=== PATIENT | female | born 1995 | race Caucasian/White ===

== ENCOUNTER 2022-12-04 00:25 | Inpatient (IN) | payer OTHER ==
[2022-12-04 03:20] LABS: BASO % 0.4 % (0-2.0); EOS % 1.1 % (0-4.5); HEMATOCRIT 32.6 % (32.4-45.2); HEMOGLOBIN 11.4 GM/dL (10.7-15.3); LYMPH % 27.5 % (8-40); MCH 29.6 pg (25.7-33.7); MCHC 34.8 g/dl (32.0-36.0); MEAN PLT VOLUME 8.3 fl (7.5-11.1); MONO % 8.1 % (3.8-10.2); NEUT % 62.9 % (42.8-82.8); PLATELET COUNT 231 10^3/uL (134-434); RBC 3.84 M/mm3 (3.60-5.2); RDW 13.5 % (11.6-15.6); WHITE BLOOD COUNT 7.1 K/mm3 (4.0-10.0)
[2022-12-04 03:24] LABS: INR 1.05 (0.83-1.09); PROTHROMBIN TIME (PATIENT) 12.2 SEC (9.7-13.0)
[2022-12-04 03:27] LABS: ACTIVATED PTT 26.5 SECONDS (25.2-36.5)
[2022-12-04 03:28] LABS: ALBUMIN 2.8 g/dl (3.4-5.0); CALCIUM 8.4 mg/dL (8.5-10.1)
[2022-12-04 03:29] LABS: BLOOD UREA NITROGEN 10.8 mg/dL (7-18)
[2022-12-04 03:32] LABS: CREATININE 0.6 mg/dL (0.55-1.3)
[2022-12-04 03:33] LABS: BILIRUBIN,TOTAL 0.4 mg/dL (0.2-1); TOT PROT 6.5 g/dl (6.4-8.2)
[2022-12-04] MEDS ORDERED: ELECTROLYTE-148 SOLN 1,000 ML IV SCH (03:45)
[2022-12-04 03:55] LABS: HEPATITIS B SURFACE AG MATERN NON-REACTIVE (NONREACTIVE); SYPHILIS W/ RPR CONF NON-REACTIVE (NONREACTIVE)
[2022-12-04] MEDS ORDERED: AMPICILLIN - 2 GM in SODIUM CHLORIDE 100 ML IVPB ONE (04:00)
[2022-12-04] MEDS: ELECTROLYTE-148 SOLN 1,000 ML IV SCH ×2 (04:15→08:20)
[2022-12-04 04:22] VITALS: BMI 31.9
[2022-12-04 04:24] LABS: HIV INTERPRETATION NEGATIVE (NEGATIVE)
[2022-12-04] MEDS ORDERED: BUTORPHANOL TARTRATE 1 MG/ML VIAL ONE (06:01)
[2022-12-04] MEDS ORDERED: PROMETHAZINE HCL 25 MG/1 ML VIAL ONE (06:01)
[2022-12-04] MEDS ORDERED: PROMETHAZINE HCL 25 MG/1 ML VIAL IVPUSH ONE (06:15)
[2022-12-04] MEDS ORDERED: BUTORPHANOL TARTRATE 1 MG/ML VIAL IVPUSH ONE (06:15)
[2022-12-04] MEDS ORDERED: PROMETHAZINE HCL 25 MG/1 ML VIAL IVPB ONE (06:15)
[2022-12-04] MEDS ORDERED: AMPICILLIN - 1 GM in SODIUM CHLORIDE 100 ML IVPB SCH (08:00)
[2022-12-04] MEDS ORDERED: LIDOCAINE HCL 1% PRESERVATIVE FREE - 30ML VIAL ONE (09:24)
[2022-12-04] MEDS ORDERED: OXYTOCIN 20 UNITS in 0.9% NS 20 UNIT/1,000 ML INFUS.BAG IV ONE (09:24)
[2022-12-04] MEDS ORDERED: FENTANYL/BUPIVACAINE/NS/PF - PCEA - 50 ML DISP.SYRIN EP ONE (10:23)
[2022-12-04] MEDS: FENTANYL/BUPIVACAINE/NS/PF - PCEA - 50 ML DISP.SYRIN EP SCH (10:58)
[2022-12-04] MEDS ORDERED: BUPIVACAINE HCL/PF 0.25% (2.5MG/ML) 10 ML VIAL ONE (11:11)
[2022-12-04] MEDS ORDERED: LIDO 2%/EPI 1:200000 PRESRVFRE (20 ML SDVIAL) ONE ×2 (11:11→11:12)
[2022-12-04] MEDS ORDERED: BISACODYL 10 MG SUPP.RECT RC PRN (12:33)
[2022-12-04] MEDS ORDERED: WITCH HAZEL 50% (TUCKS) 40 PAD/JAR PAD TP PRN (12:33)
[2022-12-04] MEDS ORDERED: BENZOCAINE 20% 57 GM BOTTLE TP PRN (12:33)
[2022-12-04] MEDS ORDERED: IBUPROFEN 600 MG TABLET (FP) PO PRN (12:33)
[2022-12-04] MEDS ORDERED: METHYLERGONOVINE MALEATE 0.2 MG/1 ML AMP IM PRN (12:33)
[2022-12-04] MEDS ORDERED: BENZOCAINE 28 GM HEMORRHOIDAL OINTMENT TP PRN (12:33)
[2022-12-04] MEDS ORDERED: METHYLERGONOVINE MALEATE 0.2 MG/1 ML AMP IM ONE (12:34)
[2022-12-04] MEDS ORDERED: OXYTOCIN 20 UNITS in 0.9% NS 20 UNIT/1,000 ML INFUS.BAG IV SCH (12:45)
[2022-12-04] MEDS ORDERED: NALOXONE HCL 0.4 MG/ML VIAL IVPUSH PRN (13:02)
[2022-12-04] MEDS: ACETAMINOPHEN 325 MG TABLET (FP) PO PRN ×2 (13:22→22:01)
[2022-12-04] MEDS ORDERED: ACETAMINOPHEN 325 MG TABLET (FP) ONE (13:24)
[2022-12-04 13:52] LABS: CORD HCO3 23.6 mmHg (20-29); CORD PCO2 51.6 mmHg (30-78); CORD pH 7.278 (7.14-7.44)
[2022-12-04 13:54] LABS: CORD BASE EXCESS -2.1 mmol/L (0-2); CORD HCO3 20.1 mmHg (20-29); CORD PCO2 28.8 mmHg (30-78); CORD pH 7.462 (7.14-7.44)
[2022-12-04 14:36] LABS: COCAINE, UR NEGATIVE (NEGATIVE); METHADONE, UR NEGATIVE (NEGATIVE); OPIATES, URI NEGATIVE (NEGATIVE); PHENCYCLIDINE,URINE NEGATIVE (NEGATIVE)
[2022-12-04 14:37] LABS: URINE BARBITURATES NEGATIVE (NEGATIVE)
[2022-12-04 14:39] LABS: URINE AMPHETAMINES NEGATIVE (NEGATIVE)
[2022-12-04 14:40] LABS: URINE BENZODIAZEPINES POSITIVE (NEGATIVE)
[2022-12-05 08:21] LABS: BASO % 0.2 % (0-2.0); EOS % 0.7 % (0-4.5); HEMATOCRIT 27.5 % (32.4-45.2); HEMOGLOBIN 9.4 GM/dL (10.7-15.3); LYMPH % 23.6 % (8-40); MCH 29.7 pg (25.7-33.7); MCHC 34.3 g/dl (32.0-36.0); MEAN CELL VOLUME 86.4 fl (80-96); MEAN PLT VOLUME 9.2 fl (7.5-11.1); MONO % 7.5 % (3.8-10.2); PLATELET COUNT 186 10^3/uL (134-434); RBC 3.18 M/mm3 (3.60-5.2); RDW 13.2 % (11.6-15.6); WHITE BLOOD COUNT 10.3 K/mm3 (4.0-10.0)
[2022-12-05 10:54] VITALS: RESP 18
[2022-12-05] MEDS: ACETAMINOPHEN 325 MG TABLET (FP) PO PRN ×2 (14:20→21:34)
[2022-12-05] MEDS: ELECTROLYTE-148 SOLN 1,000 ML IV SCH (19:53)
[2022-12-05] MEDS: FENTANYL/BUPIVACAINE/NS/PF - PCEA - 50 ML DISP.SYRIN EP SCH (19:53)
[2022-12-05] MEDS ORDERED: SENNOSIDES/DOCUSATE COMBO (SENNA PLUS) TABLET (UD) PO PRN (22:00)
[2022-12-06 11:22] VITALS: BP 107/72; PULSE 80; TEMP 98.5
== END 2022-12-06 14:25 | disposition home or self-care (01) | DRG 560 ==
LOC: JDEL 00:25 → JLDR 02:45 → J3W 14:50
PROVIDERS: ADMIT Obstetrics & Gynecology; ATTEND Obstetrics & Gynecology
PROC: 10E0XZZ Delivery of Products of Conception, External Approach (ICD-10-PCS; principal; 2022-12-04)
DX: O48.0 Post-term pregnancy (principal); Z3A.40 40 weeks gestation of pregnancy; O36.63X0 Maternal care for excessive fetal growth, third trimester, not applicable or unspecified; O69.81X0 Labor and delivery complicated by cord around neck, without compression, not applicable or unspecified; Z37.0 Single live birth
CPT/HCPCS: 36415; 36600; 59025; 76819-TC; 80053; 80307; 82803; 85025; 85610; 85730; 86780; 86850; 86900; 86901; 87340; 87389

== ENCOUNTER 2023-01-23 14:47 | Emergency (ER) | payer OTHER ==
[2023-01-23 14:58] VITALS: BP 121/70; PULSE 70; RESP 18; TEMP 98.2; BMI 31.9
[2023-01-23 16:37] LABS: EPI CELLS >36 /uL (0-25.1); HYALINE CASTS 1 /uL (0-3.1); URINE APPEARANCE CLEAR; URINE BACTERIA 1350 /uL (0-1359); URINE BILIRUBIN NEGATIVE (NEGATIVE); URINE COLOR YELLOW; URINE GLUCOSE (UA) NEGATIVE (NEGATIVE); URINE KETONE NEGATIVE (NEGATIVE); URINE LEUK ESTERASE TRACE (NEGATIVE); URINE NITRITE NEGATIVE (NEGATIVE); URINE PROTEIN TRACE (NEGATIVE); URINE RBC 16 /uL (0-23.9); URINE WBC 31 /uL (0-25.8)
[2023-01-23 16:38] LABS: HCG,QUALITATIVE URINE Negative
== END 2023-01-23 19:04 | disposition home or self-care (01) ==
LOC: JER 14:47
DX: N39.0 Urinary tract infection, site not specified (principal); R10.32 Left lower quadrant pain; R51.9 Headache, unspecified
CPT/HCPCS: 70450-TC; 76830-TC; 81003; 84703; 87086; 99285-25